=== PATIENT | female | born 1995 | race Caucasian/White ===

== ENCOUNTER 2024-07-10 15:36 | Emergency (ER) | payer MEDICAID, OTHER ==
[~2024-07-10] VITALS: Ht 162.6 cm; Wt 90.7 kg
[2024-07-10] MEDS ORDERED: ONDA4TAB5 PO (17:07)
[2024-07-10] MEDS ORDERED: NAPR-1196 PO (17:07)
[2024-07-10 17:13] VITALS: BP 136/70; O2SAT 100
== END 2024-07-10 17:25 | disposition home or self-care (01) ==
LOC: ER 15:36
DX: R11.2 Nausea with vomiting, unspecified (principal); K82.8 Other specified diseases of gallbladder; Z88.6 Allergy status to analgesic agent
CPT/HCPCS: A4606; A4663